=== PATIENT | male | born 1980 | race Caucasian/White ===

== ENCOUNTER 2019-09-14 07:47 | Emergency (ER) | payer OTHER ==
[~2019-09-14] VITALS: Ht 188 cm; Wt 94.5 kg
[~2019-09-14 07:47] MED LIST: CLIN150C14 PO; HYDR-2155 PO; ONDA4TAB10 PO
[2019-09-14 07:49] VITALS: BP 140/75
[2019-09-14] MEDS ORDERED: ONDANSETRON ODT 4 MG TAB.RAPDIS ONE (08:33)
--- NOTE | 2019-09-14 08:34 | PHYS DOC ---
Past History Past Medical History: No Pertinent History Past Surgical History: Other Additional Past Surgical Histo: Left knee, right wrist Smoking: Cigarettes, Less than 1pk/day Alcohol Use: None Drug Use: None Adult General Chief Complaint Chief Complaint: ACCIDENTAL INGESTION HPI HPI 39-year-old male presents after accidentally ingestion of a chemical substance. The patient took 2 swallows of Miranda EZ-D marker maker. It's primary ingredient is D-limonene. The patient accidentally swallowed this because it was in an unmarked regular water bottle and the patient thought it was water. After he realized that did not taste of water, he stopped drinking it. He found out what the chemical was and came to the emergency room immediately. He did not inhale the chemical. He did not have external skin exposure. At this time is very concerned about it but only complains of mild nausea and mild throat burning. He is having no difficulty breathing. He has not vomited. Review of Systems Review of Systems Constitutional: Denies fever or chills [] Eyes: Denies change in visual acuity, redness, or eye pain [] HENT: Throat irritation[] Respiratory: Denies cough or shortness of breath [] Cardiovascular: No additional information not addressed in HPI [] GI: Denies abdominal pain, nausea, vomiting, bloody stools or diarrhea [] : Denies dysuria or hematuria [] Musculoskeletal: Denies back pain or joint pain [] Integument: Denies rash or skin lesions [] Neurologic: Denies headache, focal weakness or sensory changes [] Endocrine: Denies polyuria or polydipsia [] All other systems were reviewed and found to be within normal limits, except as documented in this note. Allergies Allergies Allergies Coded Allergies Type Severity Reaction Last Updated Verified I S O L A T I O N *CONTACT* Allergy Unknown 03/12/16 Yes NKMA Allergy Unknown 03/12/16 Yes Physical Exam Physical Exam Constitutional: Well developed, well nourished, no acute distress, non-toxic appearance. [] HENT: Normocephalic, atraumatic, bilateral external ears normal, oropharynx catarino st, no oral exudates, nose normal. [] Eyes: PERRLA, EOMI, conjunctiva normal, no discharge. [] Neck: Normal range of motion, no tenderness, supple, no stridor. [] Cardiovascular:Heart rate regular rhythm, no murmur [] Lungs & Thorax: Bilateral breath sounds clear to auscultation [] Abdomen: Bowel sounds normal, soft, no tenderness, no masses, no pulsatile masses. [] Skin: Warm, dry, no erythema, no rash. [] Back: No tenderness, no CVA tenderness. [] Extremities: No tenderness, no cyanosis, no clubbing, ROM intact, no edema. [] Neurologic: Alert and oriented X 3, normal motor function, normal sensory function, no focal deficits noted. [] Psychologic: Affect normal, judgement normal, mood anxious. [] Current Patient Data Vital Signs Vital Signs Date Time Temp Pulse Resp B/P (MAP) Pulse Ox O2 Delivery O2 Flow Rate FiO2 09/14/19 07:49 97.9 118 24 98 Room Air EKG EKG [] Radiology/Procedures Radiology/Procedures [] Course & Med Decision Making Course & Med Decision Making Pertinent Labs and Imaging studies reviewed. (See chart for details) We called poison control and discussed the chemical with them. They advised supportive care and to help prevent vomiting. The greatest risk for this chemical is aspiration. It can be fatal if a lethal doses aspirated and lungs. The patient sounds like he ingested around 30 mL total. We have rinsed out his mouth. He is eating ice chips. We have given him 4 mg of Zofran ODT. We will monitor the patient for a period of time. We have monitored the patient for over an hour. He is feeling normal except for some mild throat irritation. He's had no vomiting. He believes he is able to go home at this time. I believe this is reasonable. He is stable for discharge at this time. [] Dragon Disclaimer Dragon Disclaimer This electronic medical record was generated, in whole or in part, using a voice recognition dictation system. Departure Departure: Impression: Primary Impression: Accidental ingestion of substance Disposition: HOME, SELF-CARE Condition: STABLE Referrals: PCP,ALBER (PCP) Patient Instructions: Hydrocarbon Ingestion Problem Qualifiers Primary Impression: Accidental ingestion of substance Encounter type: initial encounter Qualified Codes: T65.91XA - Toxic effect of unspecified substance, accidental (unintentional), initial encounter ANGELICA LEACH DO Sep 14, 2019 08:34
[2019-09-14] MEDS ORDERED: ONDANSETRON ODT 4 MG TAB.RAPDIS PO ONE (08:45)
== END 2019-09-14 09:12 | disposition home or self-care (01) ==
LOC: ER 07:47
DX: T65.891A Toxic effect of other specified substances, accidental (unintentional), initial encounter (principal); R11.0 Nausea; F17.210 Nicotine dependence, cigarettes, uncomplicated; Z91.041 Radiographic dye allergy status; Y92.89 Other specified places as the place of occurrence of the external cause
CPT/HCPCS: 99283; Q0162; 99282